=== PATIENT | male | born 1990 | race Caucasian/White ===

== ENCOUNTER 2016-08-06 13:39 | Emergency (ER) | payer SELFPAY ==
[~2016-08-06] VITALS: Ht 182.9 cm; Wt 71.7 kg
[~2016-08-06 13:39] MED LIST: IBUP600T26 PO; PROM25SU8 PO; TRAM50 PO
[2016-08-06 13:48] VITALS: BP 151/91; PULSE 57; RESP 16; TEMP 98.2; O2SAT 99
[2016-08-06] MEDS ORDERED: ALPR.25 PO (14:00)
[2016-08-06] MEDS ORDERED: IBUP400T20 PO (14:00)
[2016-08-06] MEDS ORDERED: DICL75TA PO (14:07)
[2016-08-06] MEDS ORDERED: CLIN1CAP5 PO (14:07)
[2016-08-06] MEDS ORDERED: MAGICADU2 SWISH-SWAL (14:07)
[2016-08-06] MEDS ORDERED: TRAM50TA PO (14:07)
[2016-08-06] MEDS ORDERED: ACETAMINOPHEN/HYDROcodone 325 MG/5 MG TAB PO ONE (14:15)
[2016-08-06] MEDS ORDERED: CLINDAMYCIN 150 MG CAP PO ONE (14:15)
--- NOTE | 2016-08-06 14:15 | PD ---
HPI Chief Complaint: Oral / Dental Pain or Problem Time Seen by Provider: 14:09 Travel History International Travel<30 days: No Contact w/Intl Traveler<30days: No Traveled to known affect area: No History of Present Illness HPI 25-year-old male that presents to the ED for evaluation of dental pain. Per patient she's had this for about 24 hours now. Per patient he has a history of bad dentition on the left lower jaw. Per patient she's had this for the past 24 hours worsening. Per patient he has not seen a dentist for the broken tooth which has been broken for more than a year. He denies any recent injury or trauma. Per patient and getting swollen. Patient does have allergies to Augmentin, cephalexin and penicillin. He states that his been taking multiple ibuprofens with minimal relief. He states that his pain is currently 10 out of 10. Denies any chest pain or shortness of breath. No fevers chills or sweats. PFSH Past Medical History Medical History: Denies Significant Hx ADHD: Yes (ODD ) Diminished Hearing: No Immunizations Current: No Tetanus Vaccination: < 5 Years Influenza Vaccination: No Past Surgical History Surgical History: No Previous Surgery Tympanostomy Tube: Yes Social History Alcohol Use: Yes (occ.) Tobacco Use: No Substance Use: No Allergies-Medications (Allergen,Severity, Reaction): Coded Allergies: Cephalexin (Verified Allergy, Severe, RASH, 08/06/16) Augmentin (Verified Allergy, Intermediate, VOMITING A BABY, 08/06/16) Penicillin (Verified Allergy, Unknown, 08/06/16) Reported Meds & Prescriptions Reported Meds & Active Scripts Active Magic Mouthwash Adult Liq (Multi-Ingredient Mouthwash/Gargle) 120 Ml Susp 5 Ml SWISH-SWAL ACHS Each 5 mL contains: Nystatin 200,000 units, Diphenhydramine 4.25 mg, Viscous Lidocaine 10 mg, [place]ales syrup 0.[address] (Diclofenac Sodium) 75 Mg Tabdr 75 Mg PO BID PRN Tramadol (Tramadol HCl) 50 Mg Tab 50 Mg PO Q6H PRN Clindamycin (Clindamycin HCl) 150 Mg Cap 300 Mg PO Q6H 10 Days Reported Ibuprofen 400 Mg Tab 400 Mg PO Q4H PRN Xanax (Alprazolam) 0.25 Mg Tab 0.25 Mg PO Q6H PRN Review of Systems Except as stated in HPI: all other systems reviewed are Neg Physical Exam Narrative GENERAL: SKIN: Warm and dry. HEAD: Atraumatic. Normocephalic. EYES: Pupils equal and round. No scleral icterus. No injection or drainage. ENT: No nasal bleeding or discharge. Mucous membranes pink and moist. Tongue is midline. No uvula deviation. Dental: Patient has bad dentition noted. Especially on the left lower jaw. Patient has one of the teeth missing with the second molar having a big cavity which is tender to touch. No purulence or mass noted. Some swelling of the gum but no purulence noted. No parotid gland tenderness to palpation. No lymphadenopathy. NECK: Trachea midline. No JVD. CARDIOVASCULAR: Regular rate and rhythm. RESPIRATORY: No accessory muscle use. Clear to auscultation. Breath sounds equal bilaterally. GASTROINTESTINAL: Abdomen soft, non-tender, nondistended. Hepatic and splenic margins not palpable. MUSCULOSKELETAL: Extremities without clubbing, cyanosis, or edema. No obvious deformities. NEUROLOGICAL: Awake and alert. No obvious cranial nerve deficits. Motor grossly within normal limits. Five out of 5 muscle strength in the arms and legs. Normal speech. PSYCHIATRIC: Appropriate mood and affect; insight and judgment normal. Data Data Last Documented VS Vital Signs Date Time Temp Pulse Resp B/P Pulse Ox O2 Delivery O2 Flow Rate FiO2 08/06/16 13:48 98.2 57 16 151/91 99 Orders Acetamin-Hydrocod 325-5 Mg ([place] 5-325 (08/06/16 14:15) Clindamycin (Cleocin) (08/06/16 14:15) [facility] Medical Decision Making Medical Screen Exam Complete: Yes Emergency Medical Condition: Yes Medical Record Reviewed: Yes Differential Diagnosis Dentalgia versus dental abscess versus dental infection Narrative Course 25-year-old male that presents to the ED for evaluation of dental pain. Patient was properly examined and was found to have signs and symptoms consistent with a dental infection. At this time I recommend trial of antibiotics and pain medication. Patient is agreement with this. Patient will be given dental referral. Told that he needs to follow with dentist for ultimate treatment of the disease. Patient will be sent home with a prescription for tramadol, Flexeril, clindamycin as well as magic mouthwash. Patient was told to follow closely with PCP. Ice or warm compresses. See ED worsening symptoms. Diagnosis Primary Impression: Dental infection Patient Instructions: General Instructions, Narcotic given in the ED Additional Instructions: Take medications as prescribed. Follow-up with dentist See ED for any worsening symptoms. Do not drink or drive while taking pain medication. Apply ice as needed for pain Med/Other Pt SpecificInfo: Prescription(s) given Scripts Fpfspuro-Vkiizkndqoeiecx-Pqwyhehcy Liq (Magic Mouthwash Adult Liq)120 Ml Susp5 Ml SWISH-SWAL ACHS #120 ML Each 5 mL contains: Nystatin 200,000 units, Diphenhydramine 4.25 mg, Viscous Lidocaine 10 mg, [place]ales syrup 0.8 mL Prov:Jamshid Hurst MD 08/06/[address] 75 Mg Tabdr75 Mg PO BID PRN (PAIN SCALE 1 TO 10) #20 TAB Prov:Jamshid Hurst MD 08/06/16 Tramadol 50 Mg Tab50 Mg PO Q6H PRN (PAIN) #20 TAB Ref 0 Prov:Jamshid Hurst MD 08/06/16 Clindamycin 150 Mg Icc328 Mg PO Q6H 10 Days Prov:Jamshid Hurst MD 08/06/16 Disposition: 01 DISCHARGE HOME Condition: Stable Adolfo Meier Aug 06, 2016 14:14
[2016-08-06 15:06] VITALS: RESP 18
== END 2016-08-06 15:06 | disposition home or self-care (01) ==
LOC: PHEFT 13:39
DX: K08.89 Other specified disorders of teeth and supporting structures (principal); F91.3 Oppositional defiant disorder; F90.9 Attention-deficit hyperactivity disorder, unspecified type; Z79.899 Other long term (current) drug therapy
CPT/HCPCS: 99282

== ENCOUNTER 2016-09-06 00:29 | Inpatient (IN) | payer SELFPAY ==
[2016-09-06] VITALS (12 sets, daily range): BP systolic 112–134; BP diastolic 52–87; PULSE 74–114; RESP 16–18; TEMP 97.9–101; O2SAT 96–100
[~2016-09-06] VITALS: Ht 182.9 cm; Wt 71.2 kg
[~2016-09-06 00:29] MED LIST changes: +ALPR.25 PO; +CLIN1CAP5 PO; +DICL75TA PO; +IBUP400T20 PO; -IBUP600T26 PO; +MAGICADU2 SWISH-SWAL; -PROM25SU8 PO; -TRAM50 PO; +TRAM50TA PO
[2016-09-06] MEDS ORDERED: SODIUM CHLOR 0.9% 1000 ML INJ 1,000 ML IV ONE ×2 (00:48→03:30)
[2016-09-06] MEDS ORDERED: SODIUM CHLORIDE 0.9% FLUSH 10 ML FLUSH IVF PRN ×2 (01:00→03:30)
[2016-09-06] MEDS ORDERED: ONDANSETRON HCL 4 MG/2 ML VIAL IVP ONE (01:00)
[2016-09-06] MEDS ORDERED: SODIUM CHLOR 0.9% 1000 ML INJ 1,000 ML IV SCH (01:00)
--- NOTE | 2016-09-06 01:03 | PD ---
HPI Chief Complaint: GI Complaint Time Seen by Provider: 00:48 Travel History International Travel<30 days: No Contact w/Intl Traveler<30days: No Traveled to known affect area: No History of Present Illness HPI 25-year-old male presents to the emergency department for numerous episodes of vomiting with a small amount of diarrhea. Patient states that he was just in the hospital with his son on Monday and Monday evening for respiratory illness and possible flu. Patient thinks he has the flu. Patient denies any respiratory illness. Patient denies fever or chills. Patient states he thinks he's vomited 20-25 times. Patient denies hematemesis coffee-ground emesis melena hematochezia. Patient's had bilious emesis. Patient states he only has abdominal pain associated with nausea and/or vomiting. Patient has no abdominal pain at this time. Patient feels very dehydrated. Poor oral intake today. Decreased urine output today. Patient is taking no medications. Pain 0 -1/10. PFSH Past Medical History Narrative Medical ADHD, tympanostomy; occasional alcohol use; nursing notes reviewed ADHD: Yes (ODD ) Diminished Hearing: No Immunizations Current: No Past Surgical History Tympanostomy Tube: Yes Social History Alcohol Use: Yes (occ.) Tobacco Use: No Substance Use: No Allergies-Medications (Allergen,Severity, Reaction): Coded Allergies: Cephalexin (Verified Allergy, Severe, RASH, 09/06/16) Augmentin (Verified Allergy, Intermediate, VOMITING A BABY, 09/06/16) Penicillin (Verified Allergy, Unknown, 09/06/16) Reported Meds & Prescriptions Reported Meds & Active Scripts Active No Active Prescriptions or Reported Medications Review of Systems Except as stated in HPI: all other systems reviewed are Neg General / Constitutional: No: Fever, Chills HENT: No: Congestion Cardiovascular: No: Chest Pain or Discomfort Respiratory: No: Shortness of Breath Gastrointestinal: Positive: Nausea, Vomiting, Diarrhea, Abdominal Pain Genitourinary: Positive: Decreased Urinary Output, No: Urgency (intermittent) , Frequency, Dysuria Musculoskeletal: Positive: Myalgias, Arthralgias Skin: No Rash Neurologic: No: Weakness Psychiatric: No: Anxiety Hematologic/Lymphatic: No: Lymph Node Enlargement Physical Exam Narrative GENERAL: Thin well-developed well-nourished male in no acute distress no respiratory distress SKIN: Warm and dry. HEAD: Normocephalic. EYES: No scleral icterus. No injection or drainage. ENT: Mucous membranes dry airway is patent NECK: Supple, trachea midline. No JVD or lymphadenopathy. CARDIOVASCULAR: Regular rate and rhythm without murmurs, gallops, or rubs. RESPIRATORY: Breath sounds equal bilaterally. No accessory muscle use. GASTROINTESTINAL: Abdomen soft, non-tender, nondistended. MUSCULOSKELETAL: No cyanosis, or edema. BACK: Nontender without obvious deformity. No CVA tenderness. Data Data Last Documented VS Vital Signs Date Time Temp Pulse Resp B/P Pulse Ox O2 Delivery O2 Flow Rate FiO2 09/06/16 02:15 88 18 134/71 100 Room Air 09/06/16 00:38 97.9 Orders Basic Metabolic Panel (Bmp) (09/06/16 00:48) Urinalysis - C+S If Indicated (09/06/16 00:48) Lipase (09/06/16 00:48) Iv Access Insert/Monitor (09/06/16 00:48) Ecg Monitoring (09/06/16 00:48) Oximetry (09/06/16 00:48) Ondansetron Inj (Zofran Inj) (09/06/16 01:00) Sodium Chlor 0.9% 1000 Ml Inj (Ns 1000 M (09/06/16 00:48) Sodium Chloride 0.9% Flush (Ns Flush) (09/06/16 01:00) Sodium Chlor 0.9% 1000 Ml Inj (Ns 1000 M (09/06/16 01:00) Complete Blood Count With Diff (09/06/16 01:08) Ct Abd/Pel W Iv Contrast(Rout) (09/06/16 ) Iohexol 350 Inj (Omnipaque 350 Inj) (09/06/16 02:42) Ondansetron Inj (Zofran Inj) (09/06/16 03:00) Lactic Acid (09/06/16 03:17) Blood Culture (09/06/16 03:17) Sodium Chlor 0.9% 1000 Ml Inj (Ns 1000 M (09/06/16 03:30) Acetaminophen (Tylenol) (09/06/16 03:30) Ketorolac Inj (Toradol Inj) (09/06/16 03:30) Metronidazole 500 Mg Inj (Flagyl 500 Mg (09/06/16 03:30) Admit Order (Ed Use Only) (09/06/16 ) ^ Saline Lock (09/06/16 03:28) Resp Oxygen Gilbert C Titrat 1-4 L (09/06/16 ) Notify Dr: Other (09/06/16 03:28) Sodium Chloride 0.9% Flush (Ns Flush) (09/06/16 09:00) Sodium Chloride 0.9% Flush (Ns Flush) (09/06/16 03:30) Labs Laboratory Tests Test 09/06/16 09/06/16 00:55 02:00 White Blood Count 19.0 TH/MM3 Red Blood Count 5.70 MIL/MM3 Hemoglobin 16.8 GM/DL Hematocrit 49.3 % Mean Corpuscular Volume 86.5 FL Mean Corpuscular Hemoglobin 29.5 PG Mean Corpuscular Hemoglobin 34.1 % Concent Red Cell Distribution Width 11.5 % Platelet Count 307 TH/MM3 Mean Platelet Volume 8.7 FL Neutrophils (%) (Auto) 94.3 % Lymphocytes (%) (Auto) 2.0 % Monocytes (%) (Auto) 2.5 % Eosinophils (%) (Auto) 0.0 % Basophils (%) (Auto) 1.2 % Neutrophils # (Auto) 17.9 TH/MM3 Lymphocytes # (Auto) 0.4 TH/MM3 Monocytes # (Auto) 0.5 TH/MM3 Eosinophils # (Auto) 0.0 TH/MM3 Basophils # (Auto) 0.2 TH/MM3 CBC Comment DIFF FINAL Differential Comment Sodium Level 138 MEQ/L Potassium Level 4.5 MEQ/L Chloride Level 99 MEQ/L Carbon Dioxide Level 27.4 MEQ/L Anion Gap 12 MEQ/L Blood Urea Nitrogen 25 MG/DL Creatinine 1.50 MG/DL Estimat Glomerular Filtration 56 ML/MIN Rate Random Glucose 135 MG/DL Calcium Level 9.7 MG/DL Lipase 100 U/L Urine Color DREW Urine Turbidity CLEAR Urine pH 6.0 Urine Specific [place] GREATER THAN 1.035 Urine Protein 30 mg/dL Urine Glucose (UA) NEG mg/dL Urine Ketones 15 mg/dL Urine Occult Blood NEG Urine Nitrite NEG Urine Bilirubin NEG Urine Leukocyte Esterase NEG Urine WBC 0-2 /hpf Urine Squamous Epithelial 0-5 /hpf Cells Urine Mucus MOD /lpf Microscopic Urinalysis Comment CULT NOT INDICATED MDM Medical Decision Making Medical Screen Exam Complete: Yes Emergency Medical Condition: Yes Medical Record Reviewed: Yes Interpretation(s) CBC & BMP Diagram 09/06/16 00:55 Vital Signs Date Time Temp Pulse Resp B/P Pulse Ox O2 Delivery O2 Flow Rate FiO2 09/06/16 01:15 74 18 123/72 99 Room Air 09/06/16 01:15 18 99 Room Air 09/06/16 00:40 18 09/06/16 00:38 97.9 114 18 132/[address] abd/pel w/ contrast: CONCLUSION: Normal examination. Avinash Castellanos Jr., MD on September 06, 2016 at 3:05 Board Certified Radiologist. This report was verified electronically. Lactic acid: 1.6, not elevated UA: SG> 1.035, very concentrated, positive ketones Differential Diagnosis Viral syndrome, gastroenteritis, dehydration, electrolyte disturbance, arrhythmia, gastritis, peptic ulcer disease, pancreatitis, biliary colic Narrative Course Patient placed on monitor; IV access obtained cervical and specimens collected and sent for resulting; patient administered 1 L normal saline bolus and then 1 L normal saline at 250 cc per hour along with Zofran 4 mg IV @ 2:15 AM nausea still present but to a lesser extent; patient now notes abdominal pain moving to the right lower quadrant. CT abd/pel ordered; patient with dehydration and leukocytosis reflecting dehydration infectious process stress demargination and identified with renal insufficiency creatinine 1.5 and gfr 56. UA --grossly within normal limits except for elevated specific gravity greater than 1.035 @3:[address] abdomen and pelvis per reading radiologist Dr. Castellanos no acute abnormality or process, "normal exam"; however, patient noted to have fever, lactic acid and blood cultures ordered, also, tylenol toradol and additional iv fluid patient meets SIRS -- T:101F, HR: 114, WCC 19K with left shift --no CT source for infection but clinically meets at least gastroenteritis thus sepsis criteria met. Call placed to [facility] service -- Sepsis Criteria SIRS Criteria (2 or more): Temp > 100.9 or < 96.8, Heart rate over 90, WBC > 67509, < 4000 or > 10% bands Sepsis Criteria (SIRS+source): Infect source susp/known (gastroenteritis) Criteria Outcome: Meets SIRS criteria, Meets sepsis criteria (borederline -- infx source gastroenteritis) Diagnosis Primary Impression: Gastroenteritis Additional Impressions: Dehydration Renal insufficiency Admitting Information Admitting Physician Requests: Observation Scripts No Active Prescriptions or Reported Jennifer Addison MD September 06, 2016 01:03 Renal insufficiency Admitting Information Admitting Physician Requests: Observation Scripts No Active Prescriptions or Reported Jennifer Addison MD September 06, 2016 01:03
[2016-09-06 01:24] LABS: BICARBONATE 27.4 MEQ/L (21.0-32.0)
[2016-09-06 01:26] LABS: AUTOMATED NEUTROPHIL # 17.9 TH/MM3 (1.8-7.7); BASOPHIL # 0.2 TH/MM3 (0-0.2); BASOPHIL % 1.2 % (0.0-2.0); HEMATOCRIT 49.3 % (39.0-51.0); LYMPHOCYTE # 0.4 TH/MM3 (1.0-4.8); MEAN CELL VOLUME 86.5 FL (80.0-100.0); MEAN CORPUSCULAR HEMOGLOBIN 29.5 PG (27.0-34.0); MEAN CORPUSCULAR HGB CONC 34.1 % (32.0-36.0); MONO % 2.5 % (0.0-8.0); NEUT % 94.3 % (16.0-70.0); PLATELET COUNT 307 TH/MM3 (150-450); RED CELL DISTRIBUTION WIDTH 11.5 % (11.6-17.2)
[2016-09-06 01:49] LABS: POTASSIUM 4.5 MEQ/L (3.5-5.1)
[2016-09-06 01:50] LABS: HEMO FLAGS DIFF FINAL
[2016-09-06 02:08] LABS: BLOOD, URINE NEG (NEG); GLUCOSE,URINE NEG (NEG); KETONE, URINE 15 mg/dL (NEG); NITRITE,URINE NEG (NEG)
[2016-09-06 02:29] LABS: URINE COLOR AMBER (YELLW/STRAW)
[2016-09-06 02:30] LABS: COMMENT (UR) CULT NOT INDICATED; CULTURE IF INDICATED CULT NOT INDICATED; MUCUS URINE MOD /lpf (OCC); SQUAMOUS EPITHELIAL CELL URINE 0-5 /hpf (0-5); WBC, URINE 0-2 /hpf (0-5)
[2016-09-06] MEDS ORDERED: IOHEXOL 350 MG/ML 10 ML VIAL (for RAD DIAG) IV ONE (02:42)
[2016-09-06] MEDS ORDERED: ONDANSETRON HCL 4 MG/2 ML VIAL IV PUSH ONE (03:00)
--- NOTE | 2016-09-06 03:08 | RADHPO ---
EXAM DATE/TIME: 09/06/2016 02:31 [place] COMPARISON: No previous studies available for comparison. INDICATIONS : Abdominal pain. Vomiting. Diarrhea. IV CONTRAST: 75 cc Omnipaque 350 (iohexol) IV ORAL CONTRAST: No oral contrast ingested. RADIATION DOSE: 5.84 CTDIvol (mGy) MEDICAL HISTORY : None SURGICAL HISTORY : None. ENCOUNTER: Initial ACUITY: 1 day PAIN SCALE: 0/10 LOCATION: Bilateral lower quadrant TECHNIQUE: Volumetric scanning of the abdomen and pelvis was performed. Using automated exposure control and ad justment of the mA and/or kV according to patient size, radiation dose was kept as low as reasonably achievable to obtain optimal diagnostic quality images. FINDINGS: LOWER LUNGS: The visualized lower lungs are clear. LIVER: Homogeneous density without lesion. There is no dilation of the biliary tree. No calcified gallston es. SPLEEN: Normal size without lesion. PANCREAS: Within normal limits. KIDNEYS: Normal in size and shape. There is no mass, stone or hydronephrosis. ADRENAL GLANDS: Within normal limits. VASCULAR: There is no aortic aneurysm. BOWEL/MESENTERY: The stomach, small bowel, and colon demonstrate no acute abnormality. There is no free intraperitone al air or fluid. ABDOMINAL WALL: Within normal limits. RETROPERITONEUM: There is no lymphadenopathy. BLADDER: No wall thickening or mass. REPRODUCTIVE: Within normal limits. INGUINAL: There is no lymphadenopathy or hernia. MUSCULOSKELETAL: Within normal limits for patient age. CONCLUSION: Normal examination. Avinash Castellanos Jr., MD on September 06, 2016 at 3:05 Board Certified Radiologist. This report was verified electronically.
[2016-09-06] MEDS ORDERED: ONDANSETRON HCL 4 MG/2 ML VIAL IV PRN (03:30)
[2016-09-06] MEDS ORDERED: SODIUM CHLORIDE 0.9% FLUSH 10 ML FLUSH IV FLUSH PRN (03:30)
[2016-09-06] MEDS ORDERED: metroNIDAZOLE 500 MG INJ 100 ML IV ONE (03:30)
[2016-09-06] MEDS ORDERED: KETOROLAC TROMETHAMINE 30 MG/ML (IVP) VIAL IV PUSH ONE (03:30)
[2016-09-06] MEDS ORDERED: ACETAMINOPHEN 325 MG TAB PO ONE (03:30)
[2016-09-06] MEDS ORDERED: MORPHINE SULFATE 4 MG/ML INJ IV PUSH PRN (03:45)
[2016-09-06] MEDS: SODIUM CHLOR 0.9% 1000 ML INJ 1,000 ML IV SCH ×3 (04:53→21:49)
[2016-09-06 06:52] LABS: AUTOMATED NEUTROPHIL # 9.3 TH/MM3 (1.8-7.7); BASOPHIL # 0.2 TH/MM3 (0-0.2); BASOPHIL % 2.4 % (0.0-2.0); EOSINOPHIL % 0.1 % (0.0-4.0); HEMATOCRIT 38.3 % (39.0-51.0); HEMO FLAGS DIFF FINAL; LYMPH % 3.7 % (9.0-44.0); LYMPHOCYTE # 0.4 TH/MM3 (1.0-4.8); MEAN CELL VOLUME 86.4 FL (80.0-100.0); MEAN CORPUSCULAR HGB CONC 33.6 % (32.0-36.0); MONO % 3.6 % (0.0-8.0); NEUT % 90.2 % (16.0-70.0); PLATELET COUNT 252 TH/MM3 (150-450); RED BLOOD COUNT 4.44 MIL/MM3 (4.50-5.90); RED CELL DISTRIBUTION WIDTH 11.9 % (11.6-17.2); WHITE BLOOD COUNT 10.3 TH/MM3 (4.0-11.0)
[2016-09-06 08:08] LABS: BICARBONATE 26.9 MEQ/L (21.0-32.0); POTASSIUM 4.2 MEQ/L (3.5-5.1)
[2016-09-06] MEDS: SODIUM CHLORIDE 0.9% FLUSH 10 ML FLUSH IV FLUSH SCH ×2 (09:00→21:00)
[2016-09-06] MEDS ORDERED: SODIUM CHLORIDE 0.9% FLUSH 10 ML FLUSH IV FLUSH SCH (09:00)
--- NOTE | 2016-09-06 11:35 | PD.PN.STU ---
Subjective Remarks Patient is a previously healthy 25 year old man who presented to the ED today with numerous episodes of vomiting and minimal diarrhea. He began feeling ill Monday night. He reports vomiting 20-25 times over this period of time. He denies unusual food intake. Since being in the hospital he has not had any vomiting and has had minimal diarrhea. He denies blood in the emesis or in the stool. Currently he reports minimal abdominal pain which he believes may be due to hunger. His son was recently sick with the flu. He has no other sick contacts. Of note he recently had a dental infection which seems to have resolved. He denies any tooth pain or irritation at this time. He takes no medications. PMH is not remarkable. He has allergies to Augmentin, cephalexin, and penicillin. Objective Vitals GENERAL: Thin well-developed well-nourished male in no acute distress no respiratory distress SKIN: Warm and dry. HEAD: Normocephalic. Atraumatic. EYES: No scleral icterus. No injection or drainage. Extraocular movements intact. NECK: Supple, trachea midline. No JVD or lymphadenopathy. CARDIOVASCULAR: Regular rate and rhythm without murmurs, gallops, or rubs. RESPIRATORY: Breath sounds equal bilaterally. No accessory muscle use. GASTROINTESTINAL: Abdomen soft, minimal tenderness with suprapubic palpation, nondistended. MUSCULOSKELETAL: No cyanosis, or edema. Vital Signs Date Time Temp Pulse Resp B/P Pulse Ox O2 Delivery O2 Flow Rate FiO2 09/06/16 08:00 97 21 09/06/16 08:00 98.1 92 16 112/63 98 09/06/16 07:31 90 17 115/67 99 Room Air 09/06/16 06:05 98 21 09/06/16 04:27 18 09/06/16 04:20 16 09/06/16 04:20 99.4 97 18 116/52 98 Room Air 09/06/16 03:10 101.0 09/06/16 02:15 88 18 134/71 100 Room Air 09/06/16 01:15 74 18 123/72 99 Room Air 09/06/16 01:15 18 99 Room Air 09/06/16 00:40 18 09/06/16 00:38 97.9 114 18 132/87 98 I/O 09/05/16 09/05/16 09/05/16 09/06/169/17 5/9/17 06:59 14:59 22:59 06:59 14:59 22:59 Intake Total 3550 ml Output Total 300 ml Balance 3250 ml Intake Oral 450 ml IV Total 3100 ml Output Urine Total 300 ml # Voids 1 # Bowel Movements 1 Result Diagram: 09/06/1645 09/06/[address]: normal. A/P Assessment and Plan Gastroenteritis: Pending blood and stool cultures. Improving. Patient received IV Metronidazole and WBC has decreased from 19.0 to 10.3. No vomiting and minimal diarrhea since his admission. Continue IV fluids. Start full liquids diet and see how he tolerates. Renal Insufficiency: Likely due to dehydration. Resolved. Cr from 1.5 to 1.2. Encourage fluid intake. Hypocalcemia: Recheck BMP at noon. If still hypocalcemia then replace. Rafa Garcia September 06, 2016 11:35 Billy Kenny MD September 07, 2016 11:43
[2016-09-06] MEDS ORDERED: CIPROFLOXACIN 400 MG PREMIX 200 ML IV SCH ×2 (14:00→17:00)
--- NOTE | 2016-09-06 15:09 | HHI.HP ---
HPI Service [facility] Primary Care Physician No Primary Care Physician Admission Diagnosis gastroenteritis, renal insufficiency; sirs Diagnoses: Chief Complaint: Diarrhea, nausea and vomiting Travel History International Travel<30 Days: No Contact w/Intl Traveler <30 Da: No Traveled to Known Affected Are: No History of Present Illness This is a 25-year-old male without significant past medical history who presents to [facility] complaining of multiple episodes of nausea vomiting and diarrhea which started Monday morning. Patient states that he had about 20-25 bouts of vomiting and some episodes of diarrhea. Denies blood or mucus in the stool. States that on Monday night he had a [employer] , Monday morning he started feeling ill. The nausea vomiting and diarrhea associated with fevers and chills. The patient also states about a month ago was treated for a tooth abscess and stopped taking antibiotic approximately 2 weeks ago. The patient denies chest pain or shortness of breath, denies dysuria , denies dizziness, denies headache. Review of Systems As per history of present illness, other systems reviewed by me and negative Past Family Social History Past Medical History Denies Past Surgical History Denies Reported Medications No Active Prescriptions or Reported Medications Allergies: Coded Allergies: Cephalexin (Verified Allergy, Severe, RASH, 09/06/16) Augmentin (Verified Allergy, Intermediate, VOMITING A BABY, 09/06/16) Penicillin (Verified Allergy, Unknown, 09/06/16) Active Ordered Medications Current Medications Medications (Trade) Dose Ordered Sig/Jalen Route Start Time Stop Time Status Last Admin (NS Flush) 2 ml BID IV FLUSH 09/06/16 09:00 Sodium Chloride 2 ml 2 ml UNSCH PRN IVF 09/06/16 03:30 (NS 1000 ml Inj) 1,000 ml @ 100 mls/hr Q10H IV 09/06/16 03:30 09/06/16 13:42 (Zofran Inj) 4 mg Q6H PRN IV 09/06/16 03:30 (Morphine Inj) 2 mg Q3H PRN IV PUSH 09/06/16 03:45 Family History Positive for diabetes mellitus, skin cancer and pancreatic cancer. Social History The patient denies smoking. The patient drinks 2-4 beers a week The patient smokes marijuana occasionally. Denies IV drug use. The patient is single and has a son. Physical Exam Vital Signs Vital Signs Date Time Temp Pulse Resp B/P Pulse Ox O2 Delivery O2 Flow Rate FiO2 09/06/16 12:00 99.6 88 16 119/71 96 09/06/16 08:00 97 21 09/06/16 08:00 98.1 92 16 112/63 98 09/06/16 07:31 90 17 115/67 99 Room Air 09/06/16 06:05 98 21 09/06/16 04:27 18 09/06/16 04:20 16 09/06/16 04:20 99.4 97 18 116/52 98 Room Air 09/06/16 03:10 101.0 09/06/16 02:15 88 18 134/71 100 Room Air 09/06/16 01:15 74 18 123/72 99 Room Air 09/06/16 01:15 18 99 Room Air 09/06/16 00:40 18 09/06/16 00:38 97.9 114 18 132/87 98 Physical Exam GENERAL: This is a well-nourished, well-developed patient, in no apparent distress. SKIN: No rashes, ecchymoses or lesions. Cool and dry. HEAD: Atraumatic. Normocephalic. No temporal or scalp tenderness. EYES: Pupils equal round and reactive. Extraocular motions intact. No scleral icterus. No injection or drainage. ENT: Nose without bleeding, purulent drainage or septal hematoma. Throat without erythema, tonsillar hypertrophy or exudate. Uvula midline. Airway patent. NECK: Trachea midline. No JVD or lymphadenopathy. Supple, nontender, no meningeal signs. CARDIOVASCULAR: Regular rate and rhythm without murmurs, gallops, or rubs. RESPIRATORY: Clear to auscultation. Breath sounds equal bilaterally. No wheezes , rales, or rhonchi. GASTROINTESTINAL: Abdomen soft, non-tender, nondistended. No hepato-splenomegaly , or palpable masses. No guarding. MUSCULOSKELETAL: Extremities without clubbing, cyanosis, or edema. No joint tenderness, effusion, or edema noted. No calf tenderness. Negative Homans sign bilaterally. NEUROLOGICAL: Awake and alert. Cranial nerves II through XII intact. Motor and sensory grossly within normal limits. Five out of 5 muscle strength in all muscle groups. Normal speech. Laboratory Laboratory Tests Test 09/06/16 09/06/16 09/06/16 09/06/16 00:55 02:00 03:37 06:45 White Blood Count 19.0 10.3 Red Blood Count 5.70 4.44 Hemoglobin 16.8 12.9 Hematocrit 49.3 38.3 Mean Corpuscular Volume 86.5 86.4 Mean Corpuscular Hemoglobin 29.5 29.0 Mean Corpuscular Hemoglobin 34.1 33.6 Concent Red Cell Distribution Width 11.5 11.9 Platelet Count 307 252 Mean Platelet Volume 8.7 8.2 Neutrophils (%) (Auto) 94.3 90.2 Lymphocytes (%) (Auto) 2.0 3.7 Monocytes (%) (Auto) 2.5 3.6 Eosinophils (%) (Auto) 0.0 0.1 Basophils (%) (Auto) 1.2 2.4 Neutrophils # (Auto) 17.9 9.3 Lymphocytes # (Auto) 0.4 0.4 Monocytes # (Auto) 0.5 0.4 Eosinophils # (Auto) 0.0 0.0 Basophils # (Auto) 0.2 0.2 CBC Comment DIFF FINAL DIFF FINAL Differential Comment Sodium Level 138 142 Potassium Level 4.5 4.2 Chloride Level 99 109 Carbon Dioxide Level 27.4 26.9 Anion Gap 12 6 Blood Urea Nitrogen 25 22 Creatinine 1.50 1.20 Estimat Glomerular Filtration 56 73 Rate Random Glucose 135 116 Calcium Level 9.7 7.5 Lipase 100 Urine Color DREW Urine Turbidity CLEAR Urine pH 6.0 Urine Specific [place] GREATER THAN 1.035 Urine Protein 30 Urine Glucose (UA) NEG Urine Ketones 15 Urine Occult Blood NEG Urine Nitrite NEG Urine Bilirubin NEG Urine Leukocyte Esterase NEG Urine WBC 0-2 Urine Squamous Epithelial 0-5 Cells Urine Mucus MOD Microscopic Urinalysis Comment CULT NOT INDICATED Lactic Acid Level 1.6 Date/Time Procedure Status Source Growth 09/06/16 04:20 Cryptosporidium Exam Received Stool Stool Pending 09/06/16 04:20 Giardia Antigen (OSWALDO) Received Stool Stool Pending 09/06/16 04:20 Received Stool Stool Pending 09/06/16 03:37 Aerobic Blood Culture Received Blood Peripheral Pending 09/06/16 03:37 Anaerobic Blood Culture Received Blood Peripheral Pending Result Diagram: 09/06/16 0645 09/06/16 0645 Imaging Current Medications Medications (Trade) Dose Ordered Sig/Jalen Route Start Time Stop Time Status Last Admin (NS Flush) 2 ml BID IV FLUSH 09/06/16 09:00 Sodium Chloride 2 ml 2 ml UNSCH PRN IVF 09/06/16 03:30 (NS 1000 ml Inj) 1,000 ml @ 100 mls/hr Q10H IV 09/06/16 03:30 09/06/16 13:42 (Zofran Inj) 4 mg Q6H PRN IV 09/06/16 03:30 (Morphine Inj) 2 mg Q3H PRN IV PUSH 09/06/16 03:45 Septic Shock Reassessment Heart: Regular rate and rhythm Lungs: Clear Peripheral Pulses: Bounding Right Radial Bounding Left Radial Bounding Right Dorsalis Pedis Bounding Left Dorsalis Pedis Assessment and Plan Problem List: (1) Sepsis ICD Code: A41.9 Status: Acute Plan: Sepsis likely secondary to gastroenteritis possible secondary to food poisoning. Also possible C. difficile infection given recent use of antibiotic for tooth infection. Admit the patient to the medical floor. Patient was given 1 dose of IV Flagyl in the emergency department. I will start the patient IV ciprofloxacin and Flagyl empirically. Follow-up stool studies which are pending Follow-up blood cultures which are pending (2) Gastroenteritis ICD Code: K52.9 Status: Acute Plan: Continue IV antibiotics as above. Continue IV fluids. Antiemetics. Follow-up stool and blood cultures. Follow-up stool studies. (3) JAYDA (acute kidney injury) ICD Code: N17.9 Status: Acute Plan: Likely secondary to dehydration secondary to nausea and vomiting. Due to prerenal azotemia which is improving with IV fluid administration. Next and continue IV fluid in the form of IV normal saline. (4) Nausea & vomiting ICD Code: R11.2 Status: Resolved Plan: Secondary to nausea and vomiting. Continue antiemetics. (5) Leukocytosis ICD Code: D72.829 Status: Resolved Plan: Secondary to sepsis due to gastroenteritis. Continue to monitor CBC with differential. WBC is improving down from 19 K - 10k (6) Fever ICD Code: R50.9 Status: Resolved Plan: Due to sepsis. Continue Tylenol prn. (7) Hyperglycemia ICD Code: R73.9 Status: Acute Plan: Check hemoglobin A1c to rule out diabetes. The patient has family history of diabetes mellitus. (8) Dehydration ICD Code: E86.0 Status: Acute Plan: Due to nausea vomiting and diarrhea. Continue IV fluids. Assessment and Plan DVT prophylaxis: SCDs, Lovenox subcutaneous. Code Status Full code Discussed Condition With Patient Physician Certification 2 Midnight Certification Type: Admission for Inpatient Services Order for Inpatient Services The services are ordered in accordance with Medicare regulations or non- Medicare payer requirements, as applicable. In the case of services not specified as inpatient-only, they are appropriately provided as inpatient services in accordance with the 2-midnight benchmark. Estimated LOS (days): 2 days is the estimated time the patient will need to remain in the hospital, assuming treatment plan goals are met and no additional complications. Post-Hospital Plan: Home Problem Qualifiers (1) Sepsis: Qualified Code: A41.9 - Sepsis, due to unspecified organism (2) Nausea & vomiting: (3) Leukocytosis: Qualified Code: D72.829 - Leukocytosis, unspecified type Billy Kenny MD September 06, 2016 15:08
[2016-09-06] MEDS ORDERED: metroNIDAZOLE 500 MG INJ 100 ML IV SCH (16:00)
[2016-09-06] MEDS: ENOXAPARIN SODIUM 40 MG/0.4 ML SYRINGE SQ SCH (16:18)
[2016-09-06 17:40] LABS: C. DIFF EPI 027 PRESUMPTIVE NEGATIVE (NEGATIVE)
[2016-09-06 18:34] LABS: C. DIFF TOXIN PCR POSITIVE (NEGATIVE)
[2016-09-06] MEDS: metroNIDAZOLE 500 MG TAB PO SCH (20:18)
[2016-09-06] MEDS ORDERED: ACETAMINOPHEN 325 MG TAB PO PRN (21:00)
[2016-09-06] MEDS ORDERED: PSEUDOEPHEDRINE HCL 30 MG TAB PO ONE (21:30)
[2016-09-07] VITALS: BP 131/70; PULSE 84; RESP 20; TEMP 96.8; O2SAT 96
[2016-09-07] MEDS: metroNIDAZOLE 500 MG TAB PO SCH ×4 (00:20→16:40)
[2016-09-07 08:11] VITALS: BP 145/90; PULSE 86; RESP 18; TEMP 97; O2SAT 99
--- NOTE | 2016-09-07 08:36 | PD.PN.STU ---
Subjective Remarks Stool came back positive for C. diff Had diarrhea last night 9 pm and 2am Reports flatulence mild abdominal pain and cough with no sputum Objective Vitals GENERAL: Thin well-developed well-nourished male in no acute distress no respiratory distress SKIN: Warm and dry. HEAD: Normocephalic. Atraumatic. EYES: No scleral icterus. No injection or drainage. Extraocular movements intact. NECK: Supple, trachea midline. No JVD or lymphadenopathy. CARDIOVASCULAR: Regular rate and rhythm without murmurs, gallops, or rubs. RESPIRATORY: Breath sounds equal bilaterally. No accessory muscle use. GASTROINTESTINAL: Hyperactive bowel sounds, abdomen is soft, minimal tenderness with suprapubic palpation, nondistended. MUSCULOSKELETAL: No cyanosis, or edema. Vital Signs Date Time Temp Pulse Resp B/P Pulse Ox O2 Delivery O2 Flow Rate FiO2 09/07/16 08:11 97.0 86 18 145/90 99 09/07/16 00:00 96.8 84 20 131/70 96 09/06/16 20:16 98 21 09/06/16 20:00 100.3 78 18 129/74 96 09/06/16 16:00 98.8 80 16 130/70 98 09/06/16 12:00 99.6 88 16 119/71 96 I/O 09/06/16 09/06/16 09/06/16 09/07/16 09/07/16 09/07/16 07:00 15:00 23:00 07:00 15:00 23:00 Intake Total 3550 ml 1050 ml 3677 ml 887 ml Output Total 300 ml Balance 3250 ml 1050 ml 3677 ml 887 ml Intake Oral 450 ml 1050 ml 480 ml 240 ml IV Total 3100 ml 3197 ml 647 ml Output Urine Total 300 ml # Voids 1 2 2 # Bowel Movements 1 1 2 Result Diagram: 09/06/16 0645 09/06/16 0645 A/P Assessment and Plan C. diff: Stopped IV Cipro Patient received IV Metronidazole and WBC has decreased from 19.0 to 10.3. 2 bouts of diarrhea last night. Continue IV fluids. Start soft diet later today if no diarrhea during the morning. Hyperglycemia: Likely response to infection Does have FH of diabetes mellitus Check HbA1c Renal Insufficiency: Likely due to dehydration. Resolved. Cr from 1.5 to 1.2. Encourage fluid intake. Hypocalcemia: Recheck BMP at noon. If still hypocalcemia then replace. Rafa Garcia September 07, 2016 08:36 Billy Kenny MD September 07, 2016 11:44
[2016-09-07] MEDS: SODIUM CHLORIDE 0.9% FLUSH 10 ML FLUSH IV FLUSH SCH ×2 (09:00→21:17)
[2016-09-07] MEDS: SODIUM CHLOR 0.9% 1000 ML INJ 1,000 ML IV SCH (09:06)
[2016-09-07 10:43] LABS: AUTOMATED NEUTROPHIL # 3.9 TH/MM3 (1.8-7.7); BASOPHIL % 0.7 % (0.0-2.0); EOSINOPHIL # 0.3 TH/MM3 (0-0.4); HEMATOCRIT 38.6 % (39.0-51.0); HEMO FLAGS DIFF FINAL; LYMPH % 9.9 % (9.0-44.0); LYMPHOCYTE # 0.5 TH/MM3 (1.0-4.8); MEAN CELL VOLUME 87.6 FL (80.0-100.0); MEAN CORPUSCULAR HEMOGLOBIN 28.8 PG (27.0-34.0); MEAN CORPUSCULAR HGB CONC 32.9 % (32.0-36.0); MONO % 12.2 % (0.0-8.0); NEUT % 72.2 % (16.0-70.0); PLATELET COUNT 212 TH/MM3 (150-450); RED CELL DISTRIBUTION WIDTH 11.7 % (11.6-17.2); WHITE BLOOD COUNT 5.4 TH/MM3 (4.0-11.0)
[2016-09-07 10:54] LABS: CHLORIDE 107 MEQ/L (98-107); POTASSIUM 3.8 MEQ/L (3.5-5.1); SODIUM (NA) 144 MEQ/L (136-145)
[2016-09-07 11:00] LABS: ANION GAP 6 MEQ/L (5-15)
[2016-09-07 11:18] LABS: ALKALINE PHOSPHATASE 46 U/L (45-117); ALT (GPT) 32 U/L (12-78); AST (GOT) 23 U/L (15-37); BLOOD UREA NITROGEN 10 MG/DL (7-18); GLOMERULAR FILTRATION RATE 90 ML/MIN (>89); TOTAL BILIRUBIN ADULT 0.6 MG/DL (0.2-1.0)
--- NOTE | 2016-09-07 12:00 | HHI.PR ---
Subjective Remarks Patient still c/o diarrhea had low grade temp last night of 100.3 denies cp/sob had 2 episodes yesterday c diff positive Objective Vitals Vital Signs Date Time Temp Pulse Resp B/P Pulse Ox O2 Delivery O2 Flow Rate FiO2 09/07/16 08:11 97.0 86 18 145/90 99 09/07/16 00:00 96.8 84 20 131/70 96 09/06/16 20:16 98 21 09/06/16 20:00 100.3 78 18 129/74 96 09/06/16 16:00 98.8 80 16 130/70 98 09/06/16 12:00 99.6 88 16 119/71 96 I/O 09/06/16 09/06/16 09/06/16 09/07/16 09/07/16 09/07/16 07:00 15:00 23:00 07:00 15:00 23:00 Intake Total 3550 ml 1050 ml 3677 ml 887 ml Output Total 300 ml Balance 3250 ml 1050 ml 3677 ml 887 ml Intake Oral 450 ml 1050 ml 480 ml 240 ml IV Total 3100 ml 3197 ml 647 ml Output Urine Total 300 ml # Voids 1 2 2 # Bowel Movements 1 1 2 Result Diagram: 09/07/16 1000 09/07/16 1000 Imaging Last Impressions Abdomen/Pelvis CT 09/06/16 0000 Signed Impressions: Service Date/Time: Tuesday, September 06, 2016 02:31 - CONCLUSION: Normal examination. Avinash Castellanos Jr., MD Objective Remarks GENERAL: This is a well-nourished, well-developed patient, in no apparent distress. SKIN: No rashes, ecchymoses or lesions. Cool and dry. HEAD: Atraumatic. Normocephalic. No temporal or scalp tenderness. EYES: Pupils equal round and reactive. Extraocular motions intact. No scleral icterus. No injection or drainage. ENT: Nose without bleeding, purulent drainage or septal hematoma. Throat without erythema, tonsillar hypertrophy or exudate. Uvula midline. Airway patent. NECK: Trachea midline. No JVD or lymphadenopathy. Supple, nontender, no meningeal signs. CARDIOVASCULAR: Regular rate and rhythm without murmurs, gallops, or rubs. RESPIRATORY: Clear to auscultation. Breath sounds equal bilaterally. No wheezes , rales, or rhonchi. GASTROINTESTINAL: Abdomen soft, non-tender, nondistended. No hepato-splenomegaly , or palpable masses. No guarding. Bowel sounds present. MUSCULOSKELETAL: Extremities without clubbing, cyanosis, or edema. No joint tenderness, effusion, or edema noted. No calf tenderness. Negative Homans sign bilaterally. NEUROLOGICAL: Awake and alert. Cranial nerves II through XII intact. Motor and sensory grossly within normal limits. Five out of 5 muscle strength in all muscle groups. Normal speech. Medications and IVs Current Medications Medications (Trade) Dose Ordered Sig/Jalen Route Start Time Stop Time Status Last Admin (NS Flush) 2 ml BID IV FLUSH 09/06/16 09:00 Sodium Chloride 2 ml 2 ml UNSCH PRN IVF 09/06/16 03:30 (NS 1000 ml Inj) 1,000 ml @ 100 mls/hr Q10H IV 09/06/16 03:30 09/07/16 09:06 (Zofran Inj) 4 mg Q6H PRN IV 09/06/16 03:30 (Morphine Inj) 2 mg Q3H PRN IV PUSH 09/06/16 03:45 (Lovenox Inj) 40 mg Q24H SQ 09/06/16 16:00 09/06/16 16:18 (Flagyl) 500 mg Q6HR PO 09/06/16 19:15 09/07/16 05:50 (Tylenol) 650 mg Q4H PRN PO 09/06/16 21:00 09/06/16 21:49 Urinary Catheter: No Vascular Central Line Catheter: No A/P Problem List: (1) Sepsis ICD Code: A41.9 Status: Acute Plan: Sepsis secondary to C. difficile diarrhea. Patient admitted to the medical floor. Patient was given 1 dose of IV Flagyl emergency department. Started on empiric IV Cipro Floxin IV Flagyl awaiting for results. C. difficile positive, C. difficile 027 negative Patient also positive for Norovirus IV ciprofloxacin discontinued once C. difficile positive. IV Flagyl discontinued and switched to oral metronidazole. Continue oral metronidazole Blood cultures negative 1. Continue supportive treatment with antiemetics, patient tolerating oral, discontinue IV fluids (2) Gastroenteritis ICD Code: K52.9 Status: Acute Plan: C. difficile positive, Norovirus positive. Continue oral Flagyl Encourage by mouth intake, DC IV fluids (3) JAYDA (acute kidney injury) ICD Code: N17.9 Status: Resolved Plan: Likely due to prerenal azotemia due to dehydration, resolved after IV fluid administration. (4) Nausea & vomiting ICD Code: R11.2 Status: Resolved Plan: Secondary to gastric enteritis due to C. difficile diarrhea, Norovirus Nausea resolved, no further vomiting, continue Zofran as needed. (5) Leukocytosis ICD Code: D72.829 Status: Resolved Plan: Secondary to sepsis due to gastroenteritis. Continue to monitor CBC with differential. Leukocytosis resolved. (6) Fever ICD Code: R50.9 Status: Resolved Plan: Due to sepsis. Continue Tylenol prn. Patient had a low-grade fever of 100.3, fevers trending down. Continue to monitor vital signs (7) Hyperglycemia ICD Code: R73.9 Status: Acute Plan: Check hemoglobin A1c to rule out diabetes. The patient has family history of diabetes mellitus. (8) Dehydration ICD Code: E86.0 Status: Resolved Plan: Due to nausea vomiting and diarrhea. Treated with IV fluids. DC IV fluids today. Encouraged oral intake. (9) C. difficile diarrhea ICD Code: A04.7 Status: Acute Plan: As above. Continue oral metronidazole, add Lactobacillus acidophilus. (10) Gastroenteritis due to norovirus ICD Code: A08.11 Status: Acute Plan: As above. Continue supportive therapy with antiemetics and IV fluids as needed. Assessment and Plan DVT prophylaxis: SCDs, Lovenox subcutaneously. Discharge Planning Continue to monitor in the medical floor. Patient still having diarrhea. Discharge in 1-2 days pending clinical improvement. Problem Qualifiers (1) Sepsis: Qualified Code: A41.9 - Sepsis, due to unspecified organism (2) Nausea & vomiting: (3) Leukocytosis: Qualified Code: D72.829 - Leukocytosis, unspecified type (4) Fever: Qualified Code: R50.9 - Fever, unspecified fever cause Billy Kenny MD September 07, 2016 12:00
[2016-09-07 12:17] VITALS: BP 130/81; PULSE 75; RESP 18; TEMP 97.3; O2SAT 98
[2016-09-07 16:40] LABS: HEMOGLOBIN A1a 1.2 %; HEMOGLOBIN A1b 0.8 %; HEMOGLOBIN Ao 86.3 %; HEMOGLOBIN F 0.8 %; HEMOGLOBIN LA1C 1.8 %; HEMOGLOBIN P3 3.3 %
[2016-09-07 16:42] VITALS: BP 120/78; PULSE 75; RESP 18; TEMP 98.7; O2SAT 96
[2016-09-07] MEDS: ENOXAPARIN SODIUM 40 MG/0.4 ML SYRINGE SQ SCH (16:42)
[2016-09-07 20:00] VITALS: BP 115/75; PULSE 72; RESP 19; TEMP 97.7; O2SAT 100
[2016-09-08] VITALS: BP 118/78; PULSE 66; RESP 19; TEMP 96.4; O2SAT 98
[2016-09-08] MEDS: metroNIDAZOLE 500 MG TAB PO SCH ×3 (00:26→11:18)
[2016-09-08 08:00] VITALS: BP 121/72; PULSE 70; RESP 16; TEMP 97; O2SAT 98
[2016-09-08] MEDS: SODIUM CHLORIDE 0.9% FLUSH 10 ML FLUSH IV FLUSH SCH (09:23)
[2016-09-08] MEDS ORDERED: METR-1 PO (10:00)
--- NOTE | 2016-09-08 10:01 | HHI.DCPOC ---
Discharge Care Plan Diagnosis: (1) Gastroenteritis (2) Gastroenteritis due to norovirus (3) C. difficile diarrhea (4) Sepsis Goals to Promote Your Health * To prevent worsening of your condition and complications * To maintain your health at the optimal level Directions to Meet Your Goals Take your medications as prescribed Follow your dietary instruction Follow activity as directed Keep your appointments as scheduled Take your immunizations and boosters as scheduled If your symptoms worsen call your PCP, if no PCP go to Urgent Care Center or Emergency Room Smoking is Dangerous to Your Health. Avoid second hand smoke Call the 24-hour hour crisis hotline for domestic abuse at Eugenio Holt MD September 08, 2016 10:01
--- NOTE | 2016-09-08 10:15 | HHI.DS ---
Discharge Summary Admission Date September 06, 2016 at 14:44 Discharge Date: September 08, 2016 Admitting Diagnosis gastroenteritis, renal insufficiency; sirs (1) Sepsis ICD Code: A41.9 (2) Gastroenteritis ICD Code: K52.9 (3) JAYDA (acute kidney injury) ICD Code: N17.9 (4) Nausea & vomiting ICD Code: R11.2 (5) Leukocytosis ICD Code: D72.829 (6) Fever ICD Code: R50.9 (7) Hyperglycemia ICD Code: R73.9 (8) Dehydration ICD Code: E86.0 (9) C. difficile diarrhea ICD Code: A04.7 (10) Gastroenteritis due to norovirus ICD Code: A08.11 Procedures None Brief History - From Admission 25-year-old male without significant past medical history who presents to [facility] complaining of multiple episodes of nausea vomiting and diarrhea which started Monday morning. Patient states that he had about 20-25 bouts of vomiting and some episodes of diarrhea. Denies blood or mucus in the stool. States that on Monday night he had a [employer], Monday morning he started feeling ill. The nausea vomiting and diarrhea associated with fevers and chills. The patient also states about a month ago was treated for a tooth abscess and stopped taking antibiotic approximately 2 weeks ago. The patient denies chest pain or shortness of breath, denies dysuria, denies dizziness, denies headache. CBC/BMP: 09/07/16 1000 09/07/16 1000 Significant Findings Laboratory Tests Test 09/06/16 09/06/16 09/06/16 09/06/16 00:55 02:00 04:20 06:45 White Blood Count 19.0 TH/MM3 (4.0-11.0) Red Cell Distribution Width 11.5 % (11.6-17.2) Neutrophils (%) (Auto) 94.3 % 90.2 % (16.0-70.0) (16.0-70.0) Lymphocytes (%) (Auto) 2.0 % 3.7 % (9.0-44.0) (9.0-44.0) Neutrophils # (Auto) 17.9 TH/MM3 9.3 TH/MM3 (1.8-7.7) (1.8-7.7) Lymphocytes # (Auto) 0.4 TH/MM3 0.4 TH/MM3 (1.0-4.8) (1.0-4.8) Blood Urea Nitrogen 25 MG/DL (7-18) 22 MG/DL (7-18) Creatinine 1.50 MG/DL (0.60-1.30) Estimat Glomerular Filtration 56 ML/MIN (>89) 73 ML/MIN (>89) Rate Random Glucose 135 MG/DL 116 MG/DL (74-106) (74-106) Urine Color DREW (YELLW/STRAW) Urine Specific [place] GREATER THAN 1.035 (1.002-1.035) Urine Protein 30 mg/dL (NEG-TRACE) Urine Ketones 15 mg/dL (NEG) Urine Mucus MOD /lpf (OCC) Stool C. difficile Toxin (PCR) POSITIVE (NEGATIVE) Red Blood Count 4.44 MIL/MM3 (4.50-5.90) Hemoglobin 12.9 GM/DL (13.0-17.0) Hematocrit 38.3 % (39.0-51.0) Basophils (%) (Auto) 2.4 % (0.0-2.0) Chloride Level 109 MEQ/L (98-107) Calcium Level 7.5 MG/DL (8.5-10.1) Test 09/07/16 10:00 Red Blood Count 4.40 MIL/MM3 (4.50-5.90) Hemoglobin 12.7 GM/DL (13.0-17.0) Hematocrit 38.6 % (39.0-51.0) Neutrophils (%) (Auto) 72.2 % (16.0-70.0) Monocytes (%) (Auto) 12.2 % (0.0-8.0) Eosinophils (%) (Auto) 5.0 % (0.0-4.0) Lymphocytes # (Auto) 0.5 TH/MM3 (1.0-4.8) Calcium Level 7.8 MG/DL (8.5-10.1) Total Protein 5.4 GM/DL (6.4-8.2) Albumin 3.0 GM/DL (3.4-5.0) Imaging Last Impressions Abdomen/Pelvis CT 09/06/16 0000 Signed Impressions: Service Date/Time: Tuesday, September 06, 2016 02:31 - CONCLUSION: Normal examination. Avinash Castellanos Jr., MD PE at Discharge GENERAL: This is a well-nourished, well-developed patient, in no apparent distress. CARDIOVASCULAR: Regular rate and rhythm without murmurs, gallops, or rubs. RESPIRATORY: Clear to auscultation. Breath sounds equal bilaterally. No wheezes , rales, or rhonchi. GASTROINTESTINAL: Abdomen soft, non-tender, nondistended. No guarding. Bowel sounds present. MUSCULOSKELETAL: Extremities without clubbing, cyanosis, or edema. NEUROLOGICAL: Awake and alert. Normal speech. PSYCH: Appropriate mood and affect. Pt update on day of discharge Patient reports he is feeling much better today. Tolerating a regular diet. No further nausea or vomiting. Last episode of diarrhea was yesterday afternoon. Feels ready to go home. Hospital Course 25-year-old male admitted with sepsis. This was secondary to gastroenteritis from norovirus and C. difficile colitis. Patient initially treated empirically with IV Cipro and Flagyl. He was switched to oral Flagyl once C. difficile testing came back positive. His symptoms quickly resolved. He is discharged home on Flagyl to complete the course of treatment. The patient was extensively counseled on proper hygiene. He was advised to wash his hands frequently with soap and water. Other conditions treated include: JAYDA: Resolved. Likely due to prerenal azotemia due to dehydration, resolved after IV fluid administration. Nausea & vomiting Secondary to gastric enteritis due to C. difficile diarrhea, Norovirus Nausea resolved, no further vomiting. Hyperglycemia -Probably due to stress. Hemoglobin A1c normal, 5.3. Dehydration Due to nausea vomiting and diarrhea. Treated with IV fluids. Pt Condition on Discharge: Good Discharge Disposition: Discharge Home Discharge Time: <= 30 minutes Discharge Instructions DIET: Follow Instructions for: As Tolerated, No Restrictions Activities you can perform: Regular-No Restrictions Other Activity Instructions: Do not prepare food for others until at least after 3-4 days without symptoms. Follow up Referrals: PCP Follow-up - 1 Week New Medications: Metronidazole (Flagyl) 500 Mg Tab 500 MG PO TID #21 TAB Eugenio Holt MD September 08, 2016 10:15
== END 2016-09-08 11:28 | disposition home or self-care (01) | DRG 872 ==
LOC: PHED 00:29 → PHEDA 03:31 → PH3B 07:46 → OBSVTOIN 14:44
PROVIDERS: ADMIT Family Medicine; ATTEND Family Medicine
DX: A41.9 Sepsis, unspecified organism (principal); N17.9 Acute kidney failure, unspecified; A04.7 Enterocolitis due to Clostridium difficile; A08.11 Acute gastroenteropathy due to Norwalk agent; E83.51 Hypocalcemia; E86.0 Dehydration; F12.90 Cannabis use, unspecified, uncomplicated; R73.9 Hyperglycemia, unspecified; Z88.0 Allergy status to penicillin; Z83.3 Family history of diabetes mellitus
CPT/HCPCS: 74177; 80048; 80053; 81001; 83036; 83605; 83690; 85025; 87040; 87328; 87329; 87493; 87506; 96361; 96374; 96375; 96376; J0744; J1650; J1885; J2405; J7030; Q9967

== ENCOUNTER 2017-02-05 18:21 | Emergency (ER) | payer SELFPAY ==
[~2017-02-05] VITALS: Ht 182.9 cm; Wt 72.0 kg
[~2017-02-05 18:21] MED LIST changes: -ALPR.25 PO; -CLIN1CAP5 PO; -DICL75TA PO; -IBUP400T20 PO; -MAGICADU2 SWISH-SWAL; +METR-1 PO; -TRAM50TA PO
[2017-02-05 18:23] VITALS: BP 130/82; PULSE 107; RESP 14; TEMP 99.7; O2SAT 96
[2017-02-05] MEDS ORDERED: IBUPROFEN 800 MG TAB PO ONE (22:30)
[2017-02-05] MEDS ORDERED: CLINDAMYCIN 150 MG CAP PO ONE (22:30)
[2017-02-05 22:57] LABS: AUTOMATED NEUTROPHIL # 8.4 TH/MM3 (1.8-7.7); BASOPHIL # 0.1 TH/MM3 (0-0.2); BASOPHIL % 0.5 % (0.0-2.0); EOSINOPHIL % 0.1 % (0.0-4.0); HEMATOCRIT 43.2 % (39.0-51.0); HEMO FLAGS DIFF FINAL; LYMPH % 10.1 % (9.0-44.0); LYMPHOCYTE # 1.1 TH/MM3 (1.0-4.8); MEAN CORPUSCULAR HEMOGLOBIN 29.4 PG (27.0-34.0); MEAN CORPUSCULAR HGB CONC 33.8 % (32.0-36.0); NEUT % 75.3 % (16.0-70.0); PLATELET COUNT 232 TH/MM3 (150-450); RED BLOOD COUNT 4.96 MIL/MM3 (4.50-5.90); WHITE BLOOD COUNT 11.2 TH/MM3 (4.0-11.0)
--- NOTE | 2017-02-05 23:23 | RADRPT ---
EXAM DATE/TIME: 02/05/2017 23:02 [place] COMPARISON: No previous studies available for comparison. INDICATIONS : Headache, dizziness, and right molar tooth abscess. MEDICAL HISTORY : None. SURGICAL HISTORY : None. ENCOUNTER: Initial ACUITY: 1 day PAIN SCORE: 7/10 LOCATION: Headache FINDINGS: Multiple views of the facial bones demonstrate no evidence of fracture. The nasal bone is intact. T he zygomatic arches are intact. The infraorbital rim is intact. The maxillary sinus is clear withou t air fluid level. No radiopaque foreign bodies are seen. CONCLUSION: Unremarkable examination of the facial bones. Sid Edwards MD on February 05, 2017 at 23:20 Board Certified Radiologist. This report was verified electronically.
[2017-02-05 23:25] LABS: POTASSIUM 4.9 MEQ/L (3.5-5.1)
--- NOTE | 2017-02-05 23:25 | PD ---
HPI Chief Complaint: Oral / Dental Pain or Problem Time Seen by Provider: 22:21 Travel History International Travel<30 days: No Contact w/Intl Traveler<30days: No Traveled to known affect area: No History of Present Illness HPI Patient is a 26-year-old male presenting to emergency department evaluation of dental pain abscess. Patient states he started having pain 2 days ago, it was worse today. The pain in his mouth is causing him to have a headache. He reports the pain as a 9 out of 10, he denies any and has been tolerating fluids. PFSH Past Medical History ADHD: Yes (ODD ) Bipolar Disorder: Yes Diabetes: No Patient Takes Glucophage: No Diminished Hearing: No Immunizations Current: Yes Tetanus Vaccination: < 5 Years Influenza Vaccination: Yes Past Surgical History Tympanostomy Tube: Yes Social History Alcohol Use: Yes (occ.) Tobacco Use: No Substance Use: No Allergies-Medications (Allergen,Severity, Reaction): Coded Allergies: cephalexin (Unverified Allergy, Severe, RASH, 02/05/17) amoxicillin (Unverified Allergy, Intermediate, VOMITING A BABY, 02/05/17 ) clavulanic acid (Unverified Allergy, Intermediate, VOMITING A BABY, 02/05/17) penicillin G (Unverified Allergy, Unknown, 02/05/17) Reported Meds & Prescriptions Reported Meds & Active Scripts Active No Active Prescriptions or Reported Medications Review of Systems Except as stated in HPI: all other systems reviewed are Neg HENT: Positive: Headaches, Dental Difficulties Physical Exam Narrative GENERAL: Well-developed, well-nourished, alert male. Resting comfortably in no acute distress. SKIN: Warm and dry. HEAD: Normocephalic. MOUTH: Mucous membranes moist, no lesions, tongue appears normal. Gumline posterior to the lower right third molar is edematous, erythematous. EYES: No scleral icterus. No injection or drainage. NECK: Supple, trachea midline. No JVD or lymphadenopathy. CARDIOVASCULAR: Regular rate and rhythm without murmurs, gallops, or rubs. RESPIRATORY: Breath sounds equal bilaterally. No accessory muscle use. GASTROINTESTINAL: Abdomen soft, non-tender, nondistended. MUSCULOSKELETAL: No cyanosis, or edema. BACK: Nontender without obvious deformity. No CVA tenderness. Data Data Last Documented VS Vital Signs Date Time Temp Pulse Resp B/P (MAP) Pulse Ox O2 Delivery O2 Flow Rate FiO2 02/05/17 18:23 99.7 107 14 130/82 (98) 96 Orders Orders Basic Metabolic Panel (Bmp) (02/05/17 22:27) Complete Blood Count With Diff (02/05/17 22:27) Facial Bones - Comp([id number]) (02/05/17 22:27) Ibuprofen (Motrin) (02/05/17 22:30) Clindamycin (Cleocin) (02/05/17 22:30) Labs Laboratory Tests Test 02/05/17 22:40 White Blood Count 11.2 TH/MM3 Red Blood Count 4.96 MIL/MM3 Hemoglobin 14.6 GM/DL Hematocrit 43.2 % Mean Corpuscular Volume 87.0 FL Mean Corpuscular Hemoglobin 29.4 PG Mean Corpuscular Hemoglobin Concent 33.8 % Red Cell Distribution Width 13.0 % Platelet Count 232 TH/MM3 Mean Platelet Volume 7.8 FL Neutrophils (%) (Auto) 75.3 % Lymphocytes (%) (Auto) 10.1 % Monocytes (%) (Auto) 14.0 % Eosinophils (%) (Auto) 0.1 % Basophils (%) (Auto) 0.5 % Neutrophils # (Auto) 8.4 TH/MM3 Lymphocytes # (Auto) 1.1 TH/MM3 Monocytes # (Auto) 1.6 TH/MM3 Eosinophils # (Auto) 0.0 TH/MM3 Basophils # (Auto) 0.1 TH/MM3 CBC Comment DIFF FINAL Differential Comment Blood Urea Nitrogen 18 MG/DL Creatinine 1.26 MG/DL Random Glucose 88 MG/DL Calcium Level 9.1 MG/DL Sodium Level 134 MEQ/L Potassium Level 4.9 MEQ/L Chloride Level 99 MEQ/L Carbon Dioxide Level 29.0 MEQ/L Anion Gap 6 MEQ/L Estimat Glomerular Filtration Rate 68 ML/MIN MDM Medical Decision Making Medical Screen Exam Complete: Yes Emergency Medical Condition: Yes Interpretation(s) Last Impressions Facial Bones X-Ray 02/05/172226 Signed Impressions: Service Date/Time: Sunday, February 05, 2017 23:02 - CONCLUSION: Unremarkable examination of the facial bones. Sid Edwards MD Laboratory Tests Test 02/05/17 22:40 White Blood Count 11.2 TH/MM3 Red Blood Count 4.96 MIL/MM3 Hemoglobin 14.6 GM/DL Hematocrit 43.2 % Mean Corpuscular Volume 87.0 FL Mean Corpuscular Hemoglobin 29.4 PG Mean Corpuscular Hemoglobin Concent 33.8 % Red Cell Distribution Width 13.0 % Platelet Count 232 TH/MM3 Mean Platelet Volume 7.8 FL Neutrophils (%) (Auto) 75.3 % Lymphocytes (%) (Auto) 10.1 % Monocytes (%) (Auto) 14.0 % Eosinophils (%) (Auto) 0.1 % Basophils (%) (Auto) 0.5 % Neutrophils # (Auto) 8.4 TH/MM3 Lymphocytes # (Auto) 1.1 TH/MM3 Monocytes # (Auto) 1.6 TH/MM3 Eosinophils # (Auto) 0.0 TH/MM3 Basophils # (Auto) 0.1 TH/MM3 CBC Comment DIFF FINAL Differential Comment Blood Urea Nitrogen 18 MG/DL Creatinine 1.26 MG/DL Random Glucose 88 MG/DL Calcium Level 9.1 MG/DL Sodium Level 134 MEQ/L Potassium Level 4.9 MEQ/L Chloride Level 99 MEQ/L Carbon Dioxide Level 29.0 MEQ/L Anion Gap 6 MEQ/L Estimat Glomerular Filtration Rate 68 ML/MIN Vital Signs Date Time Temp Pulse Resp B/P (MAP) Pulse Ox O2 Delivery O2 Flow Rate FiO2 02/05/17 18:23 99.7 107 14 130/82 (98) 96 Differential Diagnosis Abscess vs dental caries vs gingivitis vs other Narrative Course Patient presented for evaluation of right lower gum/tooth pain is been ongoing for 2 days. We'll check basic labs and imaging. Patient was given first dose of clindamycin now. He was reassessed, he was observed sleeping. He reports improvement in his pain. Patient was advised that it may take 24-48 hours of antibiotic therapy to start seeing improvement in the swelling and infection. He was encouraged to ibuprofen as needed and as directed for pain. He was encouraged to follow- up with a dentist for further evaluation and management. He was encouraged return to emergency department for any new or worsening symptoms. Patient verbalized understanding of instructions. Patient is stable for discharge. Diagnosis Primary Impression: Dental infection Referrals: Dentist 3 days Patient Instructions: Dental Abscess (ED), General Instructions, Gingivitis (ED ) Additional Instructions: Follow-up with your dentist Complete full course of antibiotics as prescribed Take ibuprofen as needed and as directed for pain Return to emergency department for any new or worsening symptoms Med/Other Pt SpecificInfo: Prescription(s) given Scripts Ibuprofen (Ibuprofen) 800 Mg Tab 800 MG PO Q6HR Y for PAIN, #40 TAB 0 Refills Prov: Steffi Mackay 02/06/17 Clindamycin (Clindamycin) 300 Mg Cap 300 MG PO TID for Infection for 10 Days, CAP 0 Refills Prov: Steffi Mackay 02/06/17 Disposition: 01 DISCHARGE HOME Condition: Stable Steffi Mackay Feb 05, 2017 23:25
[2017-02-06] MEDS ORDERED: CLIN1CAP6 PO (00:27)
[2017-02-06] MEDS ORDERED: IBUP800T23 PO (00:27)
== END 2017-02-06 00:44 | disposition home or self-care (01) ==
LOC: NEPD 18:21
DX: K04.7 Periapical abscess without sinus (principal)
CPT/HCPCS: 70150; 80048; 85025; 99284